=== PATIENT | male | born 1990 | race Two or more races ===

== ENCOUNTER 2018-01-11 22:57 | Emergency (ER) | payer SELFPAY ==
[~2018-01-11] VITALS: Ht 180.3 cm; Wt 90.7 kg
--- NOTE | 2018-01-11 23:04 | NUR ---
PT TO ER BED 7. BIBRA 62 / [employer] FROM [place] [address]; PT UNDER CUSTODY FOR BIZZARE BEHAVIOR. VSS/RESP EVEN UNLABORED/NAD NOTED/SKIN WARM AND DRY/DENIES N-V-D/AFEBRILE/AOX4. AWAITING MD CARRASQUILLO.
--- NOTE | 2018-01-11 23:20 | NUR ---
LAB ART BEDSIDE FOR DRAW.
[2018-01-11 23:28] LABS: BASOPHILS # (AUTO) 0.1 /CMM (0.0-0.2); BASOPHILS % (AUTO) 0.7 % (0.0-2.0); EOSINOPHILS # (AUTO) 0.2 /CMM (0.0-0.7); EOSINOPHILS % (AUTO) 2.4 % (0.0-6.0); HEMATOCRIT 40 % (39-51); HEMOGLOBIN 13.8 g/dL (13.5-17.5); LYMPHOCYTES # (AUTO) 3.7 /CMM (0.8-4.8); LYMPHOCYTES % (AUTO) 36.7 % (20.0-44.0); MEAN CORPUSCULAR HEMOGLOBIN 31 PG (26.0-33.0); MEAN CORPUSCULAR HGB CONC 35 g/dl (31.0-36.0); MEAN CORPUSCULAR VOLUME 89 fL (80-96); MONOCYTES # (AUTO) 0.5 /CMM (0.1-1.30); MONOCYTES % (AUTO) 5.3 % (2.0-12.0); NEUTROPHILS # (AUTO) 5.5 /CMM (1.8-8.9); NEUTROPHILS % (AUTO) 54.9 % (43.0-81.0); PLATELET COUNT (AUTO) 440 /CMM (150-450); RDW COEFFICIENT OF VARIATION 13.9 (11.5-15.0); RED BLOOD CELL COUNT(AUTO) 4.49 MIL/uL (4.5-6.0); WHITE BLOOD COUNT (AUTO) 10.1 K/uL (4.3-11.0)
[2018-01-11] MEDS ORDERED: OLANZAPINE 10 MG VIAL IM ONE ×2 (23:30→23:55)
[2018-01-11 23:44] LABS: ALBUMIN 3.8 g/dL (3.4-5.0); BILIRUBIN,DIRECT 0.1 mg/dL (0.0-0.2); BILIRUBIN,TOTAL 0.3 mg/dL (0.2-1.0); CALCIUM, SERUM 8.5 mg/dL (8.5-10.1); POTASSIUM 3.4 mmol/L (3.5-5.1); SALICYLATE 3.7 mg/dL (2.8-20.0); TOTAL PROTEIN, SERUM 7.5 g/dL (6.4-8.2)
--- NOTE | 2018-01-11 23:53 | NUR ---
URINE SPECIMEN SENT TO THE LAB.
--- NOTE | 2018-01-11 23:59 | NUR ---
[employer] REMAINS WITH PT.
[2018-01-12 00:27] LABS: APPEARANCE,URINE CLEAR (CLEAR); BILIRUBIN,URINE NEGATIVE (NEGATIVE); BLOOD, URINE TRACE Ery/uL (NEGATIVE); COLOR,URINE YELLOW (YELLOW); KETONES,URINE NEGATIVE (NEGATIVE); LEUKOCYTE ESTERASE ,URINE NEGATIVE (NEGATIVE); NITRITE, URINE NEGATIVE (NEGATIVE); PROTEIN,URINE NEGATIVE (NEGATIVE); UGLUCOSE NEGATIVE (NEGATIVE); UROBILINOGEN,URINE 0.2 EU/dL (0.2)
[2018-01-12 00:33] LABS: BACTERIA,URINE None seen /HPF (None Seen); RBC,URINE 0-2 /HPF (0-2); SQUAMOUS EPITHELIAL CELL,UR Few /HPF (None Seen); WBC,URINE 0-2 /HPF (0-3)
--- NOTE | 2018-01-12 00:49 | NUR ---
PT VSS/RESP EVEN UNLABORED/NAD NOTED. AWAITING LAB RESULTS. PT REMAINS IN [employer] CUSTODY.
--- NOTE | 2018-01-12 01:30 | NUR ---
NO CHANGES, PT COOPERATIVE. VSS.
--- NOTE | 2018-01-12 02:26 | NUR ---
Patient discharged into custody of Officer Eva #[id number] in stable condition. Written and verbal after care instructions given. Patient verbalizes understanding of instruction. Patient ambulatory with a steady gait.
[2018-01-12 02:30] VITALS: BP 138/77
== END 2018-01-12 02:30 ==
LOC: ER 22:58
DX: Z13.89 Encounter for screening for other disorder (principal); F10.129 Alcohol abuse with intoxication, unspecified; Z60.2 Problems related to living alone
CPT/HCPCS: 36415; 51702; 80048; 80076; 80305; 80329; 81001; 85025; 96372; 99284; A4606; G0480 ×2; J3490; Z7610; 81000-TC